=== PATIENT | female | born 1990 | race Caucasian/White ===

== ENCOUNTER 2016-12-21 19:48 | Emergency (ER) | payer MEDICAID ==
[~2016-12-21] VITALS: Ht 154.9 cm; Wt 113.4 kg
[2016-12-21 20:15] LABS: URINE BILIRUBIN - DIPSTICK NEGATIVE (NEG); URINE BLOOD 2+ (NEG)
--- OUTSIDE RECORDS SUMMARY | 2016-12-21 20:30 | External Medical Summary Rpt | CCD ---
Author Author , NIC LUCERO Address Unknown Phone [email or web address] Care Team Providers Care Yard Demurrage Clerk Name Role Phone [facility] Unavailable Unavailable MEDICAL GROUP, [facility], Unavailable Unavailable [facility] Unavailable Unavailable [facility], [facility] Unavailable Unavailable DEPARTNY, [facility] Purpose Continuity of Care Document - 07-13-2011 through 2016 Problems Code Diagnosis DOS Provider Status [id number] ENCOUNTER 07-12-2016 [facility] LINEN MANAGER [facility] GENERAL RTN W/O ABNORMAL FIND Z113 ENCOUNTER 07-12-2016 [facility] SCREEN LLC INFECTIONS SEXL MODE TRANSMISSN E6601 MORBID 06-05-2015 [facility] DUE MEDICAL TO EXCESS GROUP CALORIES R5383 OTHER 06-05-2015 [facility] Z0000 ENCOUNTER 06-05-2015 [facility] MED EXAM MEDICAL W/O GROUP ABNORMAL FIND L680 HIRSUTISM 02-03-2015 [facility] 61983 MORBID 10-25-2014 [facility] 7041 HIRSUTISM 10-25-2014 [facility] 83661 OTHER 10-25-2014 [facility] 53618 OTHER 10-21-2014 [facility] V812 SCREENING 10-21-2014 [facility] CARDIOVASCU LAR CONDITIONS V2541 SURVEILLANC 08-13-2014 [facility] PRESCRIBED DEPARTME CONTRACEPT PILL V2689 OTHER 08-13-2014 [facility] SPECIFIED [facility] PROCREATIVE DEPARTNY MANAGEMENT V745 SCREENING 06-18-2013 [facility] EXAMINATION [facility] FOR DEPARTNY VENEREAL DISEASE Medications Na ND Rx Da Fi Fi Am Da Di Ph RX Ph St me C No te ll ll ou ys ag ar # ys at rm s nt no ma ic us Or Da si cy ia de te s n re d RA 11 10 11 30 30 00 RI Ac 82 -0 -0 .0 00 TE ti AR 23 5- 3- 00 01 ve EN 08 20 20 18 AI AT 91 17 17 69 D AL 0 38 PH AR TA MA BL CY ET #3 93 8 RA 11 08 09 30 30 00 RI Ac 82 -2 -2 .0 00 TE ti AR 23 5- 2- 00 01 ve EN 08 20 20 18 AI AT 91 17 17 69 D AL 0 38 PH AR TA MA BL CY ET #3 93 8 RA 11 07 08 30 30 00 RI Ac 82 -0 -0 .0 00 TE ti AR 23 6- 4- 00 01 ve EN 08 20 20 18 AI AT 91 17 17 69 D AL 0 38 PH AR TA MA BL CY ET #3 93 8 RA 11 06 06 30 30 00 RI Ac 82 -0 -3 .0 00 TE ti AR 23 6- 0- 00 01 ve EN 08 20 20 18 AI AT 91 17 17 69 D AL 0 38 PH AR TA MA BL CY ET #3 93 8 Results Labs Lab Lab Date Result Refere Interp Status Commen Order Detail nces retati t Range on CHLAMYDIA AND GONORRHEA TESTING (07-19-2012 13:30) Chlamyd NEGATIV complet ia 013 E ed trachom 13:30 atis rRNA [Presen ce] in Unspeci fied specime n by Probe & target amplifi cation method Neisser NEGATIV complet ia 013 E ed gonorrh 13:30 oeae rRNA [Presen ce] in Unspeci fied specime n by Probe & target amplifi cation method CHLAMYDIA AND GONORRHEA TESTING (07-19-2012 13:30) COLLECT HEAT TREATING FURNACE TENDER complet OR 013 ed 13:30 ETHNICI WHITE, complet TY 013 NON-HIS ed 13:30 PANIC KIT [id number] complet EXPIRAT 013 4 ed ION 13:30 DATE SYMPTOM NO complet S 013 ed 13:30 REASON REVISIT complet FOR 013 /ANNUAL ed REQUEST 13:30 FAMILY PLANNIN G VISIT SPECIME URINE complet N 013 ed SOURCE 13:30 PREGNAN NO complet T 013 ed 13:30 CHART [id number] complet NUMBER 013 82 ed 13:30 Chlamyd Pending complet ia 013 ed trachom 13:30 atis rRNA [Presen ce] in Unspeci fied specime n by Probe & target amplifi cation method Neisser Pending complet ia 013 ed gonorrh 13:30 oeae rRNA [Presen ce] in Unspeci fied specime n by Probe & target amplifi cation method CHLAMYDIA AND GONORRHEA TESTING (07-13-2011 14:30) Chlamyd NEGATIV complet ia 012 E ed trachom 14:30 atis rRNA [Presen ce] in Unspeci fied specime n by Probe & target amplifi cation method Neisser NEGATIV complet ia 012 E ed gonorrh 14:30 oeae rRNA [Presen ce] in Unspeci fied specime n by Probe & target amplifi cation method CHLAMYDIA AND GONORRHEA TESTING (07-13-2011 14:30) COLLECT HEAT TREATING FURNACE TENDER complet OR 012 ed 14:30 ETHNICI WHITE, complet TY 012 NON-HIS ed 14:30 PANIC KIT [id number] complet EXPIRAT 012 2 ed ION 14:30 DATE SYMPTOM NO complet S 012 ed 14:30 REASON REVISIT complet FOR 012 /ANNUAL ed REQUEST 14:30 FAMILY PLANNIN G VISIT SPECIME URINE complet N 012 ed SOURCE 14:30 PREGNAN NO complet T 012 ed 14:30 CHART [id number] complet NUMBER 012 82 ed 14:30 Chlamyd Pending complet ia 012 ed trachom 14:30 atis rRNA [Presen ce] in Unspeci fied specime n by Probe & target amplifi cation method Neisser Pending complet ia 012 ed gonorrh 14:30 oeae rRNA [Presen ce] in Unspeci fied specime n by Probe & target amplifi cation method Encounters Encounter Start End Date Code Location Performer Type Date [facility] [place] [id number] [facility] [address] [facility] [address]
--- OUTSIDE RECORDS SUMMARY | 2016-12-21 20:30 | External Medical Summary Rpt | CCD ---
Author Author , NIC LUCERO Address Unknown Phone Care Team Providers Care Commodity Analyst Name Role Phone [facility] Unavailable Unavailable MEDICAL GROUP, [facility], Unavailable Unavailable [facility] Unavailable Unavailable [facility], [facility] Unavailable Unavailable DEPARTNV, [facility] Purpose Continuity of Care Document - 07-13-2011 through 2016 Problems Code Diagnosis DOS Provider Status [id number] ENCOUNTER 07-12-2016 [facility], ENGLISH LANGUAGE LEARNER TUTOR EXAM LLC GENERAL RTN W/O ABNORMAL FIND Z113 ENCOUNTER 07-12-2016 [facility] SCREEN LLC INFECTIONS SEXL MODE TRANSMISSN E6601 MORBID 06-05-2015 [facility] DUE MEDICAL TO EXCESS GROUP CALORIES R5383 OTHER 06-05-2015 [facility] Z0000 ENCOUNTER 06-05-2015 [facility] MED EXAM MEDICAL W/O GROUP ABNORMAL FIND L680 HIRSUTISM 02-03-2015 [facility] 58935 MORBID 10-25-2014 [facility] 7041 HIRSUTISM 10-25-2014 [facility] 03591 OTHER 10-25-2014 [facility] 14125 OTHER 10-21-2014 [facility] V812 SCREENING 10-21-2014 [facility] CARDIOVASCU LAR CONDITIONS V2541 SURVEILLANC 08-13-2014 [facility] PRESCRIBED DEPARTME CONTRACEPT PILL V2689 OTHER 08-13-2014 [facility] SPECIFIED [facility] PROCREATIVE DEPARTNV MANAGEMENT V745 SCREENING 06-18-2013 [facility] EXAMINATION [facility] FOR DEPARTNV VENEREAL DISEASE Medications Na ND Rx Da Fi Fi Am Da Di Ph RX Ph St me C No te ll ll ou ys ag ar # ys at rm s nt no ma ic us Or Da si cy ia de te s n re d RA 11 10 11 30 30 00 RI Ac 82 -0 -0 .0 00 TE ti NC 23 5- 3- 00 01 ve EN 08 20 20 18 AI AT 91 17 17 69 D AL 0 38 PH AR TA MA BL CY ET #3 93 8 RA 11 08 09 30 30 00 RI Ac 82 -2 -2 .0 00 TE ti NC 23 5- 2- 00 01 ve EN 08 20 20 18 AI AT 91 17 17 69 D AL 0 38 PH AR TA MA BL CY ET #3 93 8 RA 11 07 08 30 30 00 RI Ac 82 -0 -0 .0 00 TE ti NC 23 6- 4- 00 01 ve EN 08 20 20 18 AI AT 91 17 17 69 D AL 0 38 PH AR TA MA BL CY ET #3 93 8 RA 11 06 06 30 30 00 RI Ac 82 -0 -3 .0 00 TE ti NC 23 6- 0- 00 01 ve EN [...] CHLAMYDIA AND GONORRHEA TESTING (07-19-2012 13:30) COLLECT REMOTE CONTROL MIRROR INSTALLER complet OR 013 ed 13:30 ETHNICI WHITE, complet TY 013 NON-HIS ed 13:30 PANIC KIT [id number] complet EXPIRAT 013 4 ed ION 13:30 DATE SYMPTOM NO complet S 013 ed 13:30 REASON REVISIT complet FOR 013 /ANNUAL ed REQUEST 13:30 FAMILY PLANNIN G VISIT SPECIME URINE complet N 013 ed SOURCE 13:30 PREGNAN NO complet T 013 ed 13:30 CHART [id number] complet NUMBER 013 82 ed 13:30 Chlamyd [...] CHLAMYDIA AND GONORRHEA TESTING (07-13-2011 14:30) COLLECT REMOTE CONTROL MIRROR INSTALLER complet OR 012 ed 14:30 ETHNICI WHITE, complet TY 012 NON-HIS ed 14:30 PANIC KIT [id number] complet EXPIRAT 012 2 ed ION 14:30 DATE SYMPTOM NO complet S 012 ed 14:30 REASON REVISIT complet FOR 012 /ANNUAL ed REQUEST 14:30 FAMILY PLANNIN G VISIT SPECIME URINE complet N 012 ed SOURCE 14:30 PREGNAN NO complet T 012 ed 14:30 CHART [id number] complet NUMBER 012 82 ed 14:30 Chlamyd [...] End Date Code Location Performer Type Date [facility] [place] [id number] [facility] [address] [facility] [address]
--- OUTSIDE RECORDS SUMMARY | 2016-12-21 20:30 | External Medical Summary Rpt | CCD ---
Author Author , NIC LUCERO Address Unknown Phone [email or web address] Immunization Name Date Rout CVX Reac Dose Comm Prov Is Faci e tion ent ider Refu lity Give sed n Hep 07-1 8 999 Hist H205 No H205 B, 5-20 oric ped/ 03 al adol Info rmat ion - Sour ce Unsp ecif ied Hep 01-1 8 999 Hist H205 No H205 B, 0-20 oric ped/ 03 al adol Info rmat ion - Sour ce Unsp ecif ied Hep 10-0 8 999 Hist H205 No H205 B, 1-20 oric ped/ 02 al adol Info rmat ion - Sour ce Unsp ecif ied MMR 10-0 3 999 Hist H205 No H205 1-20 oric 02 al Info rmat ion - Sour ce Unsp ecif ied
--- OUTSIDE RECORDS SUMMARY | 2016-12-21 20:30 | External Medical Summary Rpt | CCD ---
Author Author , CLAUDIA LUCERO Address Unknown Phone [email or web address] Care Team Providers Care Government Clerk Name Role Phone [facility] Un[facility] Un[facility], Unavailable Unavailable [facility] Unavailable Unavailable [facility], [facility] Unavailable Unavailable DEPARTME, [facility] Purpose Continuity of Care Document - 06-18-2013 through 2016 Problems Code Diagnosis DOS Provider Status [id number] ENCOUNTER 07-12-2016 [facility] FLYING INSTRUCTOR EXAM LLC GENERAL RTN W/O ABNORMAL FIND Z113 ENCOUNTER 07-12-2016 [facility] SCREEN LLC INFECTIONS SEXL MODE TRANSMISSN E6601 MORBID 06-05-2015 [facility] DUE MEDICAL TO EXCESS GROUP CALORIES R5383 OTHER 06-05-2015 [facility] Z0000 ENCOUNTER 06-05-2015 [facility] MED EXAM MEDICAL W/O GROUP ABNORMAL FIND L680 HIRSUTISM 02-03-2015 [facility] 21221 MORBID 10-25-2014 [facility] 7041 HIRSUTISM 10-25-2014 [facility] 32403 OTHER 10-25-2014 [facility] 05232 OTHER 10-21-2014 [facility] V812 SCREENING 10-21-2014 [facility] CARDIOVASCU LAR CONDITIONS V2541 SURVEILLANC 08-13-2014 [facility] PRESCRIBED DEPARTME CONTRACEPT PILL V2689 OTHER 08-13-2014 [facility] SPECIFIED [facility] PROCREATIVE DEPARTME MANAGEMENT V745 SCREENING 06-18-2013 [facility] EXAMINATION [facility] FOR DEPARTME VENEREAL DISEASE Medications Na ND Rx Da Fi Fi Am Da Di Ph RX Ph St me C No te ll ll ou ys ag ar # ys at rm s nt no ma ic us Or Da si cy ia de te s n re d RA 11 10 11 30 30 00 RI Ac 82 -0 -0 .0 00 TE ti RI 23 5- 3- 00 01 ve EN 08 20 20 18 AI AT 91 17 17 69 D AL 0 38 PH AR TA MA BL CY ET #3 93 8 RA 11 08 09 30 30 00 RI Ac 82 -2 -2 .0 00 TE ti RI 23 5- 2- 00 01 ve EN 08 20 20 18 AI AT 91 17 17 69 D AL 0 38 PH AR TA MA BL CY ET #3 93 8 RA 11 07 08 30 30 00 RI Ac 82 -0 -0 .0 00 TE ti RI 23 6- 4- 00 01 ve EN 08 20 20 18 AI AT 91 17 17 69 D AL 0 38 PH AR TA MA BL CY ET #3 93 8 RA 11 06 06 30 30 00 RI Ac 82 -0 -3 .0 00 TE ti RI 23 6- 0- 00 01 ve EN 08 20 20 18 AI AT 91 17 17 69 D AL 0 38 PH AR TA MA BL CY ET #3 93 8 Encounters Encounter Start End Date Code Location Performer Type Date [facility] - [facility] 5 [facility]
--- OUTSIDE RECORDS SUMMARY | 2016-12-21 20:30 | External Medical Summary Rpt | CCD ---
Author Author , CLAUDIA LUCERO Address Unknown Phone [email or web address] Care Team Providers Care Numerical Tool Programmer Name Role Phone [facility] Unavailable Unavailable MEDICAL GROUP, [facility], Unavailable Unavailable [facility] Unavailable [facility]available [facility], [facility] Unavailable Unavailable DEPARTME, [facility] DE[facility] Purpose Continuity of Care Document - 06-18-2013 through 2016 Problems Code Diagnosis DOS Provider Status [id number] ENCOUNTER 07-12-2016 [facility] LABORATORY TECHNICIAN EXAM LLC GENERAL RTN W/O ABNORMAL FIND Z113 ENCOUNTER 07-12-2016 [facility] SCREEN LLC INFECTIONS SEXL MODE TRANSMISSN E6601 MORBID 06-05-2015 [facility] DUE MEDICAL TO EXCESS GROUP CALORIES R5383 OTHER 06-05-2015 [facility] Z0000 ENCOUNTER 06-05-2015 [facility] AD[facility] MED EXAM MEDICAL W/O GROUP ABNORMAL FIND L680 HIRSUTISM 02-03-2015 [facility] 90270 MORBID 10-25-2014 [facility] 7041 HIRSUTISM 10-25-2014 [facility] 23230 OTHER 10-25-2014 [facility] 97676 OTHER 10-21-2014 [facility] V812 SCREENING 10-21-2014 [facility] CARDIOVASCU LAR CONDITIONS V2541 SURVEILLANC [...] 82 -0 -0 .0 00 TE ti FL 23 5- 3- 00 01 ve EN 08 20 20 18 AI AT 91 17 17 69 D AL 0 38 PH AR TA MA BL CY ET #3 93 8 RA 11 08 09 30 30 00 RI Ac 82 -2 -2 .0 00 TE ti FL 23 5- 2- 00 01 ve EN 08 20 20 18 AI AT 91 17 17 69 D AL 0 38 PH AR TA MA BL CY ET #3 93 8 RA 11 07 08 30 30 00 RI Ac 82 -0 -0 .0 00 TE ti FL 23 6- 4- 00 01 ve EN 08 20 20 18 AI AT 91 17 17 69 D AL 0 38 PH AR TA MA BL CY ET #3 93 8 RA 11 06 06 30 30 00 RI Ac 82 -0 -3 .0 00 TE ti FL 23 6- 0- 00 01 ve EN 08 20 20 18 AI AT 91 17 17 69 D AL 0 38 PH AR TA MA BL CY ET #3 93 8 Encounters Encounter Start End Date Code Location Performer Type Date [facility] - [facility] 5 [facility] - [facility] 5 [facility] - 5 5 [facility]
--- OUTSIDE RECORDS SUMMARY | 2016-12-21 20:30 | External Medical Summary Rpt | CCD ---
Author Author , NIC LUCERO Address Unknown Phone [email or web address] Immunization Name Date Rout CVX Reac Dose [...]
--- NOTE | 2016-12-21 21:58 | Emergency Room Report ---
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 N Clinical Suspician of Infection? N Mental Status: 1 - Regular (Normal Baseline) Sepsis Risk:Low Sepsis Risk Have you (or family members/close friends) recently traveled outside the [place]? N If Yes, where/when: Have you had exposure to infectious disease within the past month? N TB? Other? Specify: Source patient, RN notes reviewed, family, old records Exam Limitations no limitations Comment over the last 2 days has white sputum with no hemoptysis and has pleuritic chest pain Cardiac Chest Pain Chest pain indicative of cardiac No Timing/Duration this evening Severity moderate ALLERGIES Coded Allergies: No Known Allergies (12/21/16) Home Medications Reported Medications No Known Home Medications History Medical History General CAD? No Angina: No DC: No Hypertension? No Hyperlipidemia? No CHF? No DVT? No PE? No COPD? No Asthma? No Anemia? No GERD? No Gastric ulcers? No GI Bleed? No Hernia? No Thyroid Problems? No Hypothyroidism? No CVA? No Seizures? No Diabetes? No Renal Insuffiency? No End Stage Renal Disease? No UTI? No Stones? No BPH? No GB Disease: No Nephritic Syndrome? No Asplenia? No Hepatitis? No Sickle Cell Disease? No Arthritis? No Migraines? No Cataracts? No Glaucoma? No MRSA? No HIV? No TB? No Anxiety? No Depression? No Cancer? No More? 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 Respiratory see HPI, cough, denies shortness of breath, denies wheezing Cardiovascular denies chest pain, denies syncope Gastrointestinal denies abdominal pain, denies diarrhea, denies vomiting Genitourinary denies: dysuria, frequency, hesitancy, hematuria. Musculoskeletal denies back pain, denies joint pain, denies joint swelling, denies neck pain Skin denies rash Psychiatric/Neurological denies headache, denies seizure Physical Exam Vital Signs Vital Signs Date Time Temp Pulse Resp B/P Pulse O2 O2 Flow FiO2 Ox Delivery Rate 12/214 72 18 134/79 95 12/214 98.7 83 18 141/80 95 - WBC >12,000 or <4,000 or 10% bands? 2 or more SIRS Criteria Met? B/P:134/79 MAP:100 Creatinine >2.0? UA output<0.5ml/kg/hr for 2 hrs? Platelet count >100,000? Lactate >2.0mmol/1? INR >1.2 or PTT > than 60 sec? Evidence of Organ Dysfunction? Provider documented clinical suspician of infection? N Sepsis Criteria Count: 0 Sepsis Risk: Low Sepsis Risk General Appearance no apparent distress Eye Exam - bilateral eye PERRL, bilateral eye EOMI Ear, Nose, Throat normal ENT inspection Neck supple Respiratory Status No: respiratory distress. Lung Sounds bilateral: rhonchi. Cardiovascular regular rate/rhythm, no peripheral edema, no gallop, no JVD, no murmur, no rub Peripheral Pulses Pulses normal Yes Gastrointestinal soft Extremities normal inspection Strength 4 Upper Ext (L), 4 Upper Ext (R), 4 Lower Ext (L), 4 Lower Ext (R) Neurologic alert, director intelligence analysis programs II-XII nml as tested, no motor/sensory deficits Reflexes Reflexes normal No Mental status normal mood/affect Skin intact Medical Decision Making LABS/Meds/Orders Pt receiving controlled substance in ED? No Results/Orders Laboratory Tests 12/21/161999: Influenza Type A Ag NOT DETECTED, Influenza Type B Ag NOT DETECTED, Urine Color YELLOW, Urine Appearance CLEAR, Urine pH 6.0, Ur Specific Bond >= 1.030, Urine Protein NEGATIVE, Urine Ketones NEGATIVE, Urine Blood 2+ H, Urine Nitrate NEGATIVE, Urine Bilirubin NEGATIVE, Urine Urobilinogen 0.2, Ur Leukocyte Esterase NEGATIVE, Urine RBC 3-5, Urine WBC 3-5, Ur Squamous Epith Cells 10-20, Urine Bacteria 2+, Urine Mucus 4+, Urine Glucose NEGATIVE Current Medication Orders Sig/Jose Start time Last Medication Dose Route Stop Time Status Admin Benzonatate 100 MG ONCE ONE 12/21 2214 AC 12/21 PO 12/21 Levofloxacin 500 MG ONCE ONE 12/21 2214 AC 12/21 PO 12/21 Prednisone 40 MG ONCE ONE 12/21 2214 AC 12/21 PO 12/21 Tramadol HCl 1 KILLIAN ONCE ONE 12/21 2214 AC 12/21 PO 12/21 Levofloxacin 0 .STK-MED ONE 12/21 2208 DC .ROUTE Prednisone 0 .STK-MED ONE 12/22 2207 DC .ROUTE Tramadol HCl 0 .STK-MED ONE 12/22 2207 DC PO Benzonatate 0 .STK-MED ONE 12/21 2206 DC PO Orders Procedure Date/time Status URINE 12/21 2134 Complete URINALYSIS/COMPLETE 12/21 2002 Complete Urine Test, Perform12/21 Active INFLUENZA A&B ANTIGENS 12/21 2000 Complete CULTURE, URINE 12/22 1999 Active Departure Departure Time of Disposition 2201 Disposition DC Home or Self Care(routine) Clinical Impression Primary Impression: Bronchitis Condition STABLE Referrals Pancho Canchola MD (Family) Patient Instructions DI for Pleurisy Additional Instructions use meds and see pcp for follow up Discharge Counseling Counseled pt/family regarding diagnosis, test results, medications/RX, follow up needs Prescriptions Current Visit Scripts BENZONATATE (Benzonatate) 100 MG PO TID #15 CAP Prednisone (Prednisone 20MG) 20 MG PO BID #10 TAB Azithromycin (Zithromycin (Z-KILLIAN) 250MG Tab) 250 MG PO DAILY #6 TAB TAKE TWO (2) TABLETS ON DAY 1, THEN ONE (1) TABLET DAY #2 THRU #5 ED Critical Care Critical Care No at 2210
[2016-12-21] MEDS ORDERED: TESSALON PERLE100 MG PO (22:10)
[2016-12-21] MEDS ORDERED: ZITHROMAX Z PA250 MG PO (22:10)
[2016-12-21] MEDS ORDERED: PREDNISONE 20MG20 MG PO (22:10)
[2016-12-21 22:12] VITALS: BP 134/79
== END 2016-12-21 22:15 | disposition home or self-care (01) ==
LOC: ER 19:48
PROVIDERS: Emergency Medicine
DX: J20.9 Acute bronchitis, unspecified (principal); F17.210 Nicotine dependence, cigarettes, uncomplicated